=== PATIENT | female | born 1965 | race Caucasian/White ===

== ENCOUNTER 2017-04-28 06:59 | Day surgery (SDC) | payer OTHER ==
[~2017-04-28] VITALS: Ht 157.5 cm; Wt 52.7 kg
[~2017-04-28 06:59] MED LIST: HYDR-3498 PO
[2017-04-28] MEDS ORDERED: LEVO50TA74 PO (08:07)
[2017-04-28] MEDS ORDERED: ESOM40CA PO (08:07)
[2017-04-28] MEDS ORDERED: DICLOFENAC PO (08:07)
[2017-04-28 08:25] VITALS: Ht 157.5 cm; Wt 52.7 kg
[2017-04-28 08:28] VITALS: BP 128/72; PULSE 108; RESP 26
[2017-04-28 09:50] VITALS: BP 132/60; RESP 20
--- NOTE | 2017-04-28 10:56 | GILP ---
DATE OF PROCEDURE: 04/28/2017 PROCEDURE PERFORMED: EGD with biopsy and colonoscopy. INDICATION: A 52-year-old female undergoing this procedure for dysphagia and change in bowel habits. The risks of the procedure, related and unrelated complications, sedative risks, and alternatives discussed. Informed consent was obtained. DESCRIPTION OF PROCEDURE: The patient was brought to the GI lab, sedated with Versed 5 mg and fentanyl 100 mg. After optimal sedation, scope was passed into the esophagus, just grossly within normal limits. Z-line was at 35 cm. Stomach mucosa revealed chronic gastritis. Multiple biopsies obtained. Duodenal bulb, 1st and 2nd part, were within normal limits including ampulla. Retroversion done. sphincter appeared normal. Scope was straightened out and removed with good patient tolerance. The patient was turned around. Scope was passed with much ease into the rectum. Digital examination was done before introducing the scope, which was normal. The sphincter tone was normal. No mass was felt. Scope was advanced slowly through sigmoid, descending colon all the way into cecum and finally into terminal ileum. Terminal ileum was normal. IC valve and cecum was normal. While coming out, mucosa thoroughly inspected. There was a solitary diverticulum identified. The rest of the colon appeared normal. Retroversion done. Hemorrhoid seen. ASSESSMENT: 1. Normal esophagus. No stricture noting. 2. Z-line regular at 35 cm. 3. Chronic gastritis. 4. Normal duodenal with ampulla. 5. Normal findings all the way into cecum except for a mild diverticulosis, left side of the colon. 6. Normal terminal ileum. 7. Clarity and cleanliness was good. 8. Internal hemorrhoids on retroversion. PLAN: Review histopathology. Stay on high-fiber diet. Dictated By: Neal Goodrich MD /debbie/mark anthony /Document#: [id number] CC: Richard Polanco MD;*[facility]*
[2017-04-29] MEDS ORDERED: MIDAZOLAM 1 MG/ML 2 ML INJ ONE ×3 (18:02)
[2017-04-29] MEDS ORDERED: FENTAnyl 50 MCG/ML VIAL ONE (18:02)
== END 2017-04-28 10:51 | disposition home or self-care (01) ==
LOC: GIL 06:59
PROVIDERS: ATTEND Internal Medicine Gastroenterology
DX: R19.4 Change in bowel habit (principal); K29.50 Unspecified chronic gastritis without bleeding; K64.8 Other hemorrhoids; E03.9 Hypothyroidism, unspecified
CPT/HCPCS: 88305; 88312; J2250; J3010

== ENCOUNTER 2017-07-22 20:27 | Observation (INO) | payer OTHER ==
[~2017-07-22] VITALS: Ht 147.3 cm; Wt 50.5 kg
[~2017-07-22 20:27] MED LIST changes: +DICLOFENAC PO; +ESOM40CA PO; -HYDR-3498 PO; +LEVO50TA74 PO
[2017-07-22 21:05] VITALS: Ht 147.3 cm; Wt 50.5 kg
[2017-07-23] VITALS (18 sets, daily range): BP systolic 109–125; BP diastolic 50–73; PULSE 72–82; RESP 17–26; TEMP 98.4
[2017-07-23] MEDS ORDERED: GLUCAGON 1 MG INJ IM STA ×2 (00:12→02:12)
--- NOTE | 2017-07-23 00:25 | ERD ---
ER Documentation Chief Complaint Date/Time DATE: 07/23/17 TIME: 00:23 Chief Complaint PAIN AFTER EATING, +N/V, AND REPORTS THROAT PAIN HPI This is a 52-year-old female who has had a 8 or 9 month history of getting occasional meat stuck in her esophagus. Patient has had an EGD which was normal. Patient had some steak at 3 PM today and says the bolus of steak is stuck in her esophagus again. She is spitting up saliva and unable to swallow any liquids. She feels a fullness in the mid chest from bolus is stuck. No difficulty breathing or anginal type of symptoms ROS All systems reviewed and are negative except as per history of present illness. Medications Home Meds Reported Medications Adalimumab (Humira) Unknown Strength Syringekit, SQ [id number], KIT 07/23/17 Calcium Citrate/Vitamin D (Citracal-Vitamin D 200 MG-250) 1 Each Tablet, 1 EACH PO BID, TAB 07/23/17 Garlic Extract* (Garlic*) 600 Mg Tablet, 600 MG PO DAILY, TAB 07/23/17 Levothyroxine Sodium* (Levothyroxine Sodium*) 50 Mcg Tablet, 50 MCG PO BEFORE BREAKFAST, #30 TAB 04/28/17 Esomeprazole Mag Trihydrate (Nexium) 40 Mg Capsule.dr, 40 MG PO DAILY, #30 CAP 04/28/17 Discontinued Reported Medications [Diclofenac] No Conflict Check, 50 MG PO 04/28/17 Allergies Allergies: Coded Allergies: sulfasalazine (Unverified Allergy, Intermediate, 07/23/17) tongue feels like it is burning Uncoded Allergies: Metrotexate (Allergy, Intermediate, 04/28/17) PMhx/Soc History of Surgery: Yes (CSECTION) Anesthesia Reaction: No Hx Neurological Disorder: No Hx Respiratory Disorders: No Hx Cardiac Disorders: No Hx Psychiatric Problems: Yes (MILD DEPRESSION) Hx Miscellaneous Medical Probl: Yes (gastritis) Hx Alcohol Use: Yes (OCCASIONAL) Hx Substance Use: No Hx Tobacco Use: No Smoking Status: Never smoker FmHx Family History: No coronary disease Physical Exam Vitals Vital Signs Date Time Temp Pulse Resp B/P Pulse Ox O2 Delivery O2 Flow Rate FiO2 07/23/17 00:44 99.9 82 22 118/62 98 07/22/17 21:05 100.3 123 22 125/60 98 Physical Exam Const: Well-developed, well-nourished Head: Atraumatic, normocephalic Eyes: Normal Conjunctiva, PERRLA, EOMI, normal sclera, no nystagmus ENT: Normal External Ears, Nose and Mouth, moist mucus membranes. Neck: Full range of motion. No meningismus, no lymphadenopathy. Resp: Clear to auscultation bilaterally, no wheezing, rhonchi, rales Cardio: Regular rate and rhythm, no murmurs, S1 S2 present Abd: Soft, non tender x 4, non distended. Normal bowel sounds, no guarding or rebound, no pulsitile abdominal masses or bruits Skin: No petechiae or rashes, no ecchymosis , no maculopapular rash Back: No midline or flank tenderness Ext: No cyanosis, or edema, FROM x 4, normal inspection, neurovascularly intact x 4 Neur: Awake and alert, STR 5/5 x 4, sensation intact x 4, no focal findings, cerebellum intact Psych: Normal Mood and Affect Results 24 hrs Current Medications Medications (Trade) Dose Ordered Sig/Varsha Route PRN Reason Start Time Stop Time Status Last Admin Dose Admin Glucagon (Glucagen) 1 mg ONCE STAT IM 07/23/17 00:12 07/23/17 00:13 DC 07/23/17 00:44 Glucagon (Glucagen) 1 mg ONCE STAT IM 07/23/17 02:12 07/23/17 02:13 DC 07/23/17 02:32 Procedures/MDM Patient received glucagon 1 mg IM 2 and had some carbonated drink and after a few hours of observation the patient is no better. I spoke with Dr. Ashwini de la vega of GI and he will see the patient in consultation to remove the food bolus in the morning We will admit Departure Diagnosis: Primary Impression: Esophageal obstruction due to food impaction Condition: Stable CODY LEZAMAJane GIORDANO Jul 23, 2017 00:25
[2017-07-23] MEDS ORDERED: ADAL10SY SQ (02:07)
[2017-07-23] MEDS ORDERED: GARL600T PO (02:07)
[2017-07-23] MEDS ORDERED: CALC-143 PO (02:07)
[2017-07-23] MEDS ORDERED: SOD CHLORIDE 0.9% 1,000 ML IV SCH (03:28)
[2017-07-23] MEDS ORDERED: ONDANSETRON 4 MG INJ IV PRN ×3 (03:30→20:00)
[2017-07-23] MEDS ORDERED: ACETAMINOPHEN 325 MG TAB PO PRN (03:30)
[2017-07-23] MEDS: SOD CHLORIDE 0.9% 1,000 ML IV SCH ×3 (04:10→22:14)
[2017-07-23 04:29] LABS: BASOPHILS % 0.1 % (0.0-2.0); EOSINOPHILS # 0.1 10^3/ul (0.0-0.5); EOSINOPHILS % 0.9 % (0.0-7.0); HEMOGLOBIN 11.6 g/dl (12.0-16.0); LYMPHOCYTES # 3.6 10^3/ul (0.8-2.9); LYMPHOCYTES % 25.3 % (15.0-51.0); MEAN CORPUSCULAR HEMOGLOBIN 24.1 pg (29.0-33.0); MEAN CORPUSCULAR HGB CONC 30.5 g/dl (32.0-37.0); MEAN CORPUSCULAR VOLUME 78.8 fl (82.0-101.0); MONOCYTE # 0.4 10^3/ul (0.3-0.9); MONOCYTES % 2.9 % (0.0-11.0); NEUTROPHIL # 10.1 10^3/ul (1.6-7.5); NEUTROPHILS % 70.5 % (39.0-77.0); PLATELET COUNT 515 10^3/UL (140-415); RED BLOOD COUNT 4.82 10^6/ul (4.20-5.40); RED CELL DISTRIBUTION WIDTH 18.5 % (11.5-14.5); WHITE BLOOD COUNT 14.3 10^3/ul (4.8-10.8)
[2017-07-23] MEDS ORDERED: morphine 2 MG INJ IV PRN (04:30)
[2017-07-23] MEDS ORDERED: NACL 0.9% 3 ML SYG IV SCH (04:30)
[2017-07-23 05:16] LABS: CALCIUM 9.8 mg/dl (8.4-10.2); CREATININE 0.71 mg/dl (0.44-1.00); POTASSIUM 3.6 mmol/L (3.5-5.1)
[2017-07-23 05:23] LABS: INR 1.04; PROTIME 13.6 Sec (12.2-14.2); PT RATIO 1.1
[2017-07-23 05:24] LABS: PARTIAL THROMBOPLASTIN TIME 33.2 Sec (25.0-35.0)
--- NOTE | 2017-07-23 06:26 | HP ---
Date/Time of Note Date/Time of Note DATE: 07/23/17 TIME: 06:21 Assessment/Plan VTE Prophylaxis VTE Prophylaxis Intervention: SCD's Assessment/Plan Chief Complaint/Hosp Course This is a 52-year-old female being admitted to the [facility] floor for: #1 foreign body in esophagus: Patient apparently will take she feels that it stuck in her throat. Was given carbonated water in the ED however there was no success. Patient is having increased saliva. At the current time will keep the patient n.p.o. Provide IV fluid hydration with normal saline. GI has been consulted via the ED for removal of the foreign body. I do feel the patient also will benefit from an endoscopy secondary to the patient's history of having difficulty swallowing food at times. #2 rheumatoid arthritis: At the current time will hold patient's home medications, will resume once foreign bodies removed. #3 hypothyroidism: Check TSH level, resume home medication once #1 is resolved #4 gastritis: Patient likely will benefit from a full EGD, will defer to GI. #5 DVT GI prophylaxis: SCDs, Protonix Further treatment strategy will be implemented as per the clinical course Problems: HPI/ROS Admit Date/Time Admit Date/Time Hx of Present Illness Chief complaint: Steak stuck in throat This is a 52-year-old female who has had a 8 or 9 month history of getting occasional meat stuck in her esophagus. Patient has had an EGD which was normal in the past. Patient had some steak at 3 PM today and says the steak is stuck in her esophagus again. She has never had to have a procedure to remove food in the past, as the food as passed on its own in the past. She is spitting up saliva and unable to swallow any liquids. She feels a fullness in the mid chest from bolus is stuck. No difficulty breathing or anginal type of symptoms. Allergies: Methotrexate, sulfasalazine Medications: See ALBINA WEI Const: As per HPI Eyes : No pain discharge or redness or change in visual acuity ENT: No pain, sore throat, congestion, congestion, dysphagia or discharge Respiratory: No shortness of breath, cough, sputum, wheezing, or pleuritic pain Cardiovascular: No chest pain, palpitation, PND, or edema GI : As per HPI Genitourinary: No dysuria, hematuria, flank pain , discharge or CVA tenderness Musculoskeletal: No joint pain, back pain, neck pain, restricted range of motion in neck or joints Skin: No rash, bruising or hives Neuro: No headache, dizziness, syncope, seizure, focal weakness Endocrine: No polyuria, polydipsia, temperature intolerance Psych: No hallucination, depression, anxiety or suicidal ideation PMH/Family/Social Past Medical History Rheumatoid arthritis, hypothyroidism, gastritis Past Surgical History 2 Family History Significant Family History: other (Mom: Rheumatoid arthritis) Social History Alcohol Use: none Smoking Status: Never smoker Drug Use: none Exam/Review of Systems Vital Signs Vitals Vital Signs Date Time Temp Pulse Resp B/P Pulse Ox O2 Delivery O2 Flow Rate FiO2 07/23/17 04:34 99.1 77 20 122/60 98 Exam Exam General: Patient is sitting in bed in no acute distress conversing normally. HEENT: Atraumatic, normocephalic. The pupils are equal, round and reactive. Extraocular motor are intact. No food visible on examination of the oral cavity Neck: Supple with full range of motion. No rigidity or meningismus Lungs: Clear to auscultation bilaterally no crackles rales or wheezing Heart: Normal S1-S2, Regular rhythm and rate. No murmur, S3, or S4 Abdomen: Soft , nontender, nondistended , bowel sounds are present. No guarding no rebound tenderness , No masses or organomegaly. No costovertebral temporal angle mass Extremities: Bilateral upper extremity hand swan-neck deformity Neurologic: Normal mental status, speech normal, cranial nerves II through XII are intact, motor and sensory are intact, no focal weakness Labs Result Diagram: 07/23/179 07/23/179 Medications Medications Current Medications Sodium Chloride 1,000 ml @ 80 mls/hr [id number] IV ; Start 07/23/17 at 03:28; Stop 07/23/17 at 15:57 Sodium Chloride (NS) 1,000 ml @ 70 mls/hr [id number] IV ; Start 07/23/17 at 04:10 Ondansetron HCl (Zofran Inj) 4 mg Q6H PRN IV NAUSEA AND/OR VOMITING; Start at 04:30 Morphine Sulfate (morphine) 2 mg Q4H PRN IV SEVERE PAIN LEVEL 7-10; Start at 04:30 Pantoprazole (Protonix Iv) 40 mg DAILY@06 IV ; Start 07/23/17 at 06:00 TREVOR CARROLL Jul 23, 2017 06:26
[2017-07-23] MEDS ORDERED: LIDOCAINE 2% (SDV) 5 ML INJ ONE (07:00)
[2017-07-23] MEDS: PANTOPRAZOLE 40 MG INJ IV SCH (07:40)
--- NOTE | 2017-07-23 12:52 | RADRPT ---
PROCEDURE: Chest x-ray CLINICAL INDICATION: Shortness of breath TECHNIQUE: Chest single view COMPARISON: None FINDINGS: The heart is normal in size. The pulmonary vessels are normal in caliber. There is persistent left lower lobe atelectasis/scarring. The lungs otherwise clear. The costophrenic angles sharp. Bony thor ax is unremarkable. IMPRESSION: No acute cardiopulmonary disease. Persistent left lower lobe atelectasis/scarring RPTAT: HH .Obed Rojas MD, MD Date Time Electronically viewed and signed by .Obed Rojas MD, on 07/23/2017 12:50 .W/
[2017-07-23] MEDS ORDERED: HYDROmorphONE 1 MG/ML SYG IV PRN (14:30)
[2017-07-23 15:27] LABS: ADD UMIC YES; UR ASCORBIC ACID 40 mg/dL (NEGATIVE); UR BACTERIA FEW /HPF (NONE SEEN); UR BILIRUBIN (Dip) NEGATIVE (NEGATIVE); UR BLOOD (Dip) NEGATIVE (NEGATIVE); UR CLARITY CLEAR (CLEAR); UR COLOR YELLOW (YELLOW); UR GLUCOSE (Dip) NEGATIVE (NEGATIVE); UR KETONES (Dip) 2+ mg/dL (NEGATIVE); UR LEUKOCYTE ESTERASE (Dip) 2+ Leu/ul (NEGATIVE); UR MUCUS MANY /HPF (NONE SEEN); UR NITRITE (Dip) NEGATIVE (NEGATIVE); UR RBC 4 /HPF (0-5); UR SPECIFIC GRAVITY (Dip) 1.029 (1.003-1.030); UR SQUAMOUS EPITHELIAL CELL FEW /HPF (FEW); UR TOTAL PROTEIN (Dip) 2+ mg/dl (NEGATIVE); UR UROBILINOGEN (Dip) NEGATIVE (NEGATIVE)
[2017-07-23] MEDS ORDERED: FENTAnyl 50 MCG/ML VIAL ONE (18:27)
--- NOTE | 2017-07-23 18:34 | CONS ---
Date/Time of Note Date/Time of Note DATE: 07/23/17 TIME: 18:25 Assessment/Plan Assessment/Plan Additional Assessment/Plan Impression: Foot impaction distal esophagus Chronic reflux symptoms Rheumatoid arthritis Plan: EGD plus foreign body removal. Procedure was explained to the patient and her in Croatian in detail including risks, benefits alternatives they are agreeable to proceed. Consultation Date/Type/Reason Admit Date/Time Date of Consultation: Jul 23, 2017 Type of Consultation: GI Reason for Consultation Esophageal food impaction Hx of Present Illness 52-year-old female with chronic history of rheumatoid arthritis on Humira, she also takes nonsteroidal inflammatory agents relatively frequently. The patient has been experiencing dysphagia which has been progressive over the last few months. She also complains of pyrosis and regurgitation. Yesterday the patient was eating normal meal and bite of steak felt not going through after multiple attempts of removing it by getting water and attempting to induce vomiting failed to relieve the obstruction patient presented to the emergency room. She has been in the emergency room all day and continues to feel discomfort in the lower chest and inability to swallow her own saliva. At this point we will evaluate endoscopically and further recommendation depending the findings at the time of endoscopy. The procedure has been expanded to the patient in detail including risks, benefits alternatives. She is agreeable to proceed. Constitutional: improved, no complaints Eyes: no complaints ENT: no complaints Respiratory: no complaints Cardiovascular: no complaints Gastrointestinal: other (See HPI) Genitourinary: no complaints Musculoskeletal: bone/joint pain, other (Deformity typical for rheumatoid arthritis), restricted range of motion, swelling Skin: no complaints Neurologic: no complaints Endocrine: no complaints Lymphatic: no complaints Psychological: nl mood/affect, no complaints Immunologic: no complaints Social History Alcohol Use: none Smoking Status: Never smoker Drug Use: none Exam/Review of Systems Vital Signs Vitals Vital Signs Date Time Temp Pulse Resp B/P Pulse Ox O2 Delivery O2 Flow Rate FiO2 07/23/17 16:15 98.4 78 18 122/74 100 Room Air Exam PHYSICAL EXAMINATION: GENERAL: Well developed, well nourished, alert & oriented x 3, in no acute distress SKIN: No lesions, no stigmata chronic liver disease, no evidence of bleeding diathesis LYMPHATIC: No palpable lymphadenopathy. HEAD: Normocephalic, atraumatic, no tenderness. EYES: Pupils equal reactive to light and accommodation, full extraocular movements, sclera clear, non-icteric, no discharge. EARS/NOSE AND THROAT: Ears normal, nose normal, oropharynx normal, oral membranes well hydrated without lesions. NECK: Supple, no masses, thyroid normal, JVP within normal limits, carotids normal without bruits. CHEST: Inspection within normal limits. CARDIOVASCULAR: Heart: Regular rate and rhythm, no murmurs, gallops or rubs. Peripheral pulses present within normal limits, no cyanosis, clubbing or edemas. No pulsatile abdominal mass RESPIRATORY: Lungs clear to auscultation and percussion, no wheezing, no rubs GASTROINTESTINAL AND LIVER: Abdomen: Soft, non tenderness, non-distended, no hernias, no masses, no organomegaly, no ascites, no guarding, no rebound tenderness, normoactive bowel sounds. Rectal: Deferred. GENITOURINARY: [Female genitalia within normal limits.] EXTREMITIES: Deformity of rheumatoid arthritis. No cyanosis, clubbing or edema. Results Result Diagram: 07/23/17 0409 07/23/17 0409 Results 24 hrs Laboratory Tests Test 07/23/17 04:09 07/23/17 14:50 White Blood Count 14.3 H Red Blood Count 4.82 Hemoglobin 11.6 L Hematocrit 38.0 Mean Corpuscular Volume 78.8 L Mean Corpuscular Hemoglobin 24.1 L Mean Corpuscular Hemoglobin Concent 30.5 L Red Cell Distribution Width 18.5 H Platelet Count 515 H Mean Platelet Volume 9.0 # Neutrophils % 70.5 Lymphocytes % 25.3 Monocytes % 2.9 Eosinophils % 0.9 Basophils % 0.1 Nucleated Red Blood Cells % 0.0 Neutrophils # 10.1 H Lymphocytes # 3.6 H Monocytes # 0.4 Eosinophils # 0.1 Basophils # 0.0 Nucleated Red Blood Cells # 0.0 Prothrombin Time 13.6 Prothrombin Time Ratio 1.1 INR International Normalized Ratio 1.04 Activated Partial Thromboplast Time 33.2 Sodium Level 149 H Potassium Level 3.6 Chloride Level 110 Carbon Dioxide Level 28 Anion Gap 15 Blood Urea Nitrogen 20 Creatinine 0.71 Glucose Level 104 Calcium Level 9.8 Urine Color YELLOW Urine Clarity CLEAR Urine pH 6.0 Urine Specific [place] 1.029 Urine Ketones 2+ H Urine Nitrite NEGATIVE Urine Bilirubin NEGATIVE Urine Urobilinogen NEGATIVE Urine Leukocyte Esterase 2+ H Urine Microscopic RBC 4 Urine Microscopic WBC 18 H Urine Squamous Epithelial Cells FEW Urine Bacteria FEW A Urine Mucus MANY A Urine Hemoglobin NEGATIVE Urine Glucose NEGATIVE Urine Total Protein 2+ H Urine Test NEGATIVE Medications Medications Current Medications Sodium Chloride (NS) 1,000 ml @ 70 mls/hr [id number] IV Last administered on 04:10; Admin Dose 70 MLS/HR; Start 07/23/17 at 04:10 Ondansetron HCl (Zofran Inj) 4 mg Q6H PRN IV NAUSEA AND/OR VOMITING; Start at 04:30 Pantoprazole (Protonix Iv) 40 mg DAILY@06 IV Last administered on 07/23/17 07 :40; Admin Dose 40 MG; Start 07/23/17 at 06:00 Hydromorphone HCl (Dilaudid) 1 mg Q6H PRN IV PAIN; Start 07/23/17 at 14:30 Copies To: CC: ALFREDO DELGADO MD, MORDO MD Jul 23, 2017 18:33
[2017-07-23] MEDS ORDERED: SUCCINYLCHOLINE CHLORIDE 100 MG/5 ML SYG IV ONE (18:44)
[2017-07-23] MEDS ORDERED: PROPOFOL 20 ML ONE (18:44)
--- NOTE | 2017-07-23 18:45 | OPPN ---
Date/Time of Note Date/Time of Note DATE: 07/23/17 TIME: 18:42 Proc Note GI Procedure Date 07/23/17 Indication: other (Foreign body impaction and esophagus) Pre-procedure Diagnosis Foreign body impaction and esophagus Post-procedure Diagnosis Impression: Foreign body impaction and esophagus Post removal by pushing the material into the stomach Moderate distal esophagitis Mild stricture distal esophagus. 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 Procedure Performed: Endoscopy (With foreign body removal) Surgeon ALFREDO DELGADO MD See signature line Basket Turner none Anesthesia Type: general Anesthesiologist: BRE MORELAND Tourniquet Time none EBL none Transfusion required none Biopsy 1: None Grafts/Implants none Tubes/Drains none Complication(s) none Disposition: PACU Procedure Description Preoperative Diagnosis: After informed consent, with the patient/relatives understanding the procedure, its indications, potential risks and complications, including but not limited to : allergic reaction, bleeding, perforation or infection, and after all pertinent questions were answered to the patients satisfaction, the patient/ relatives signed witnessed informed consent. Following this, premedication was administered slowly IV push under careful cardiovascular and respiratory monitoring with pulse oximetry, automatic blood pressure, and patient access director. Once the sedative effect was achieved the patient was place in the left lateral decubitus, the panendoscope was introduced and advanced under visual control. Careful examination of the upper gastrointestinal tract, both on insertion as well as withdrawal of the instrument disclosing the following findings: ESOPHAGUS: the mucosa of the entire esophagus was carefully examined and showed the following findings: There is food impaction in distal esophagus which appears soft it was easily pushed down into the stomach with the endoscope. The mucosa of the distal esophagus shows erythema edema and erosion related to prolonged impaction. The lumen is slightly compromised with an estimated lumen of 12 mm. No dilatation was performed at this time. Otherwise the mucosa appears within normal limits. There is no evidence of varices, neoplasm. No Hiatal Hernia identified. STOMACH: Upon entrance to the stomach air was insufflated, the gastric garcia distended normally. The mucosa of the fundus, body and antrum of the stomach was carefully examined both head-on and on retroflexion, and showed the following findings: the mucosa appears within normal limits with no abnormalities. There is no evidence of gastritis, ulcers or neoplasm. PYLORUS: The pylorus was carefully examined and showed the following findings: the pylorus appears patent and within normal limits, with no evidence of gastric outlet obstruction. DUODENUM: The duodenal mucosa was carefully examined in the duodenal bulb as well as the second portion of the duodenum and showed the following findings: the mucosa appears unremarkable with no evidence of duodenitis, ulcer or neoplasm. Copies To: CC: ALFREDO DELGADO MD, MORDO MD Jul 23, 2017 18:45
[2017-07-23] MEDS ORDERED: FENTAnyl 50 MCG/ML VIAL IV PRN ×3 (20:00)
[2017-07-23] MEDS ORDERED: METOCLOPRAMIDE 10 MG INJ IV PRN (20:00)
[2017-07-23] MEDS ORDERED: KETOROLAC 30 MG INJ IV PRN (20:00)
[2017-07-23] MEDS ORDERED: EPHEDrine SULFATE 50 MG/5 ML SYG IV PRN (20:00)
[2017-07-23] MEDS ORDERED: hydrALAzine 20 MG INJ IV PRN (20:00)
[2017-07-23] MEDS ORDERED: DIPHENHYDRAMINE 50 MG INJ IV PRN (20:00)
[2017-07-23] MEDS ORDERED: LABETALOL HCL 20MG INJ IV PRN (20:00)
[2017-07-23] MEDS ORDERED: MEPERIDINE 25 MG INJ IV PRN (20:00)
[2017-07-23] MEDS ORDERED: OXYCODONE/ACETAMINOPHEN (5/325) TAB PO PRN ×2 (20:00)
[2017-07-24] MEDS ORDERED: LEVOTHYROXINE 50 MCG TAB PO SCH (06:00)
[2017-07-24 06:01] LABS: BASOPHILS % 0.1 % (0.0-2.0); EOSINOPHILS # 0.4 10^3/ul (0.0-0.5); EOSINOPHILS % 4.9 % (0.0-7.0); HEMATOCRIT 35.3 % (37.0-47.0); HEMOGLOBIN 10.4 g/dl (12.0-16.0); LYMPHOCYTES # 3.8 10^3/ul (0.8-2.9); MEAN CORPUSCULAR HEMOGLOBIN 23.8 pg (29.0-33.0); MEAN CORPUSCULAR HGB CONC 29.5 g/dl (32.0-37.0); MEAN CORPUSCULAR VOLUME 80.8 fl (82.0-101.0); MEAN PLATELET VOLUME 9.8 fl (7.4-10.4); MONOCYTE # 0.2 10^3/ul (0.3-0.9); MONOCYTES % 3.1 % (0.0-11.0); NEUTROPHIL # 3.3 10^3/ul (1.6-7.5); NEUTROPHILS % 42.8 % (39.0-77.0); PLATELET COUNT 463 10^3/UL (140-415); RED BLOOD COUNT 4.37 10^6/ul (4.20-5.40); RED CELL DISTRIBUTION WIDTH 18.3 % (11.5-14.5); WHITE BLOOD COUNT 7.7 10^3/ul (4.8-10.8)
[2017-07-24] MEDS: PANTOPRAZOLE 40 MG INJ IV SCH (06:18)
[2017-07-24] MEDS ORDERED: INFLUENZA VIRUS VACCINE 0.5 ML (DISPENSING) IM* ONE (06:30)
[2017-07-24 06:43] LABS: ALBUMIN 3.1 g/dl (3.3-4.9); ALBUMIN/GLOBULIN RATIO 0.83; BILIRUBIN,INDIRECT 0.1 mg/dl (0-1.1); BILIRUBIN,TOTAL 0.1 mg/dl (0.2-1.3); CALCIUM 8.9 mg/dl (8.4-10.2); CREATININE 0.69 mg/dl (0.44-1.00); MAGNESIUM 1.9 mg/dl (1.7-2.5); PHOSPHORUS 4.1 mg/dl (2.5-4.9); POTASSIUM 4.4 mmol/L (3.5-5.1); TOTAL PROTEIN 6.8 g/dl (6.1-8.1)
[2017-07-24 07:41] VITALS: BP 126/60; RESP 18
[2017-07-24] MEDS ORDERED: NON-FORMULARY/PATIENT OWN MED (Esomeprazole Mag Trihydrate (Nexium) 40 MG) PO SCH (09:00)
--- NOTE | 2017-07-24 10:25 | PDOCDIS ---
Discharge Instructions DIAGNOSIS Discharge Diagnosis Foreign body in the esophagus. CONDITION Patient Condition: Stable HOME CARE INSTRUCTIONS: Diet Instructions: Regular FOLLOW UP/APPOINTMENTS Follow-up Plan Adelaida Bell MD [facility] Office Address [id number] [place] [address] Office OTHER ORDERS: Other Orders: 1. Take a regular diet. 2. Resume home medications 3. Follow-up with gastroenterology [Dr. Bell] in 4 weeks. Please call for appointment. ROSEANNE DAILY NP Jul 24, 2017 10:25
--- NOTE | 2017-07-24 10:34 | DS ---
Date/Time of Note Date/Time of Note DATE: 07/24/17 TIME: 10:33 Discharge Summary Admission/Discharge Info Admit Date/Time Jul 23, 2017 at 03:30 Discharge Date/Time Discharge Diagnosis 1. Foreign body impaction in the esophagus. Status post removal by pushing the material in the stomach with esophagogastroduodenoscopy. 2. Rheumatoid arthritis. 3. Hypothyroidism. 4. Moderate distal esophagitis. 5. Mild stricture of the distal esophagus. Patient Condition: Stable Consults 1. Adelaida Bell MD, Gastroenterology. Procedures ESOPHAGOGASTRODUODENOSCOPY Indication: other (Foreign body impaction) Pre-procedure Diagnosis Foreign body impaction in the esophagus Post-procedure Diagnosis Impression: Foreign body impaction in the esophagus Post removal by pushing the material into the stomach Moderate distal esophagitis Mild stricture distal esophagus. 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 Patient has had an EGD which was normal in the past. Patient had some steak at 3 PM on 07/22/2017 and felt like the steak is stuck in her esophagus again. She has never had to have a procedure to remove food in the past, as the food as passed on its own in the past. She was spitting up saliva and unable to swallow any liquids. She felt a fullness in the mid chest from the bolus stuck. No difficulty in breathing or anginal type of symptoms. Allergies: Methotrexate, sulfasalazine Medications: See [facility] Hospital Course The patient was admitted to inpatient setting. The patient was kept n.p.o. A gastroenterology consult was obtained. The patient underwent an esophagogastroduodenoscopy with removal of the foreign body by pushing the material into the stomach. The esophagogastroduodenoscopy also revealed moderate distal esophagitis and mild stricture of the distal esophagus with an estimated lumen of 12 mm and the patient probably has motility disorder of the esophagus related to her underlying rheumatoid arthritis. No dilatation was done at this time. However, the patient needs repeat esophagogastroduodenoscopy as outpatient for esophageal dilatation in 4 weeks. Postprocedure, the patient was started on a mechanical soft diet and the patient was able to tolerate the diet without any significant gastrointestinal symptoms. The patient is stable to be discharged home to be followed up with outpatient gastroenterology in 4 weeks for esophageal dilatation. The patient had a stable hospital course. Discharge Instructions 1. Take a regular preferably mechanical soft diet. 2. Resume home medications 3. Follow-up with gastroenterology [Dr. Bell] in 4 weeks. Please call for appointment. The patient verbalized understanding of her discharge instructions. At this time I would like to thank for seeing the patient, doing the necessary procedures, and providing clinical recommendations. Case discussed with Dr. Velazco. Home Meds Reported Medications Adalimumab (Humira) Unknown Strength Syringekit, SQ [id number], KIT 07/23/17 Calcium Citrate/Vitamin D (Citracal-Vitamin D 200 MG-250) 1 Each Tablet, 1 EACH PO BID, TAB 07/23/17 Garlic Extract* (Garlic*) 600 Mg Tablet, 600 MG PO DAILY, TAB 07/23/17 Levothyroxine Sodium* (Levothyroxine Sodium*) 50 Mcg Tablet, 50 MCG PO BEFORE BREAKFAST, #30 TAB 04/28/17 Esomeprazole Mag Trihydrate (Nexium) 40 Mg Capsule.dr, 40 MG PO DAILY, #30 CAP 04/28/17 Discontinued Reported Medications [Diclofenac] No Conflict Check, 50 MG PO 04/28/17 Follow-up Plan Adelaida Bell MD Specialty Gastroenterology Office Address [id number] [place] [id number] Office Primary Care Provider Richard Polanco MD Time spent on discharge: > 30 minutes Pending Labs Laboratory Tests Test 07/23/17 14:50 07/24/17 04:33 Urine Color YELLOW (YELLOW) Urine Clarity CLEAR (CLEAR) Urine pH 6.0 (5.0-9.0) Urine Specific [place] 1.029 (1.003-1.030) Urine Ketones 2+mg/dL (NEGATIVE) Urine Nitrite NEGATIVEmg/dL (NEGATIVE) Urine Bilirubin NEGATIVEmg/dL (NEGATIVE) Urine Urobilinogen NEGATIVEmg/dL (NEGATIVE) Urine Leukocyte Esterase 2+Ted/ul (NEGATIVE) Urine Microscopic RBC 4/HPF (0-5) Urine Microscopic WBC 18/HPF (0-5) Urine Squamous Epithelial Cells FEW/HPF (FEW) Urine Bacteria FEW/HPF (NONE SEEN) Urine Mucus MANY/HPF (NONE SEEN) Urine Hemoglobin NEGATIVEmg/dL (NEGATIVE) Urine Glucose NEGATIVEmg/dL (NEGATIVE) Urine Total Protein 2+mg/dl (NEGATIVE) Urine Test NEGATIVE (NEGATIVE) White Blood Count 7.710^3/ul (4.8-10.8) Red Blood Count 4.3710^6/ul (4.20-5.40) Hemoglobin 10.4g/dl (12.0-16.0) Hematocrit 35.3% (37.0-47.0) Mean Corpuscular Volume 80.8fl (82.0-101.0) Mean Corpuscular Hemoglobin 23.8pg (29.0-33.0) Mean Corpuscular Hemoglobin Concent 29.5g/dl (32.0-37.0) Red Cell Distribution Width 18.3% (11.5-14.5) Platelet Count 85680^3/UL (140-415) Mean Platelet Volume 9.8fl (7.4-10.4) Neutrophils % 42.8% (39.0-77.0) Lymphocytes % 49.0% (15.0-51.0) Monocytes % 3.1% (0.0-11.0) Eosinophils % 4.9% (0.0-7.0) Basophils % 0.1% (0.0-2.0) Nucleated Red Blood Cells % 0.0/100WBC (0.0-0.0) Neutrophils # 3.310^3/ul (1.6-7.5) Lymphocytes # 3.810^3/ul (0.8-2.9) Monocytes # 0.210^3/ul (0.3-0.9) Eosinophils # 0.410^3/ul (0.0-0.5) Basophils # 0.010^3/ul (0.0-0.1) Nucleated Red Blood Cells # 0.010^3/ul (0.0-0.0) Sodium Level 143mmol/L (135-144) Potassium Level 4.4mmol/L (3.5-5.1) Chloride Level 111mmol/L (97-110) Carbon Dioxide Level 24mmol/L (21-31) Anion Gap 12 (8-16) Blood Urea Nitrogen 21mg/dl (7-20) Creatinine 0.69mg/dl (0.44-1.00) Glucose Level 78mg/dl (70-220) Calcium Level 8.9mg/dl (8.4-10.2) Phosphorus Level 4.1mg/dl (2.5-4.9) Magnesium Level 1.9mg/dl (1.7-2.5) Total Bilirubin 0.1mg/dl (0.2-1.3) Direct Bilirubin 0.00mg/dl (0.00-0.20) Indirect Bilirubin 0.1mg/dl (0-1.1) Aspartate Amino Transf (AST/SGOT) 22IU/L (15-46) Alanine Aminotransferase (ALT/SGPT) 20IU/L (13-69) Alkaline Phosphatase 104IU/L (42-121) Total Protein 6.8g/dl (6.1-8.1) Albumin 3.1g/dl (3.3-4.9) Globulin 3.70g/dl (1.3-3.2) Albumin/Globulin Ratio 0.83 Microbiology Date/Time Source Procedure Growth Status 07/23/17 14:50 Clean Catch Urine Urine Culture - Preliminary Resulted ROSEANNE DAILY NP Jul 24, 2017 10:34
--- NOTE | 2017-07-24 14:20 | CONS ---
Date/Time of Note Date/Time of Note DATE: 07/24/17 TIME: 14:17 Assessment/Plan Assessment/Plan Chief Complaint/Hosp Course Impression: Foreign body impaction and esophagus 2. EGD with Post removal by pushing the material into the stomach on 07-23-17 3. Moderate distal esophagitis 4. Mild stricture distal esophagus. Estimated lumen 12 mm 5. 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 continue PPI therapy 2. Mechanical soft diet 3. ok to dc from GI perspective if ok with primary and no other acute medical issues 4. Outpatient follow-up for esophageal dilatation in 4 weeks Problems: Consultation Date/Type/Reason Admit Date/Time Jul 23, 2017 at 03:30 Initial Consult Date 07/23/17 Type of Consultation: GI 24 HR Interval Summary Free Text/Dictation no n/v, tolerates po Exam/Review of Systems Vital Signs Vitals Vital Signs Date Time Temp Pulse Resp B/P Pulse Ox O2 Delivery O2 Flow Rate FiO2 07/24/17 07:41 98.5 67 18 126/60 97 07/23/17 22:05 Room Air Intake and Output 07/23/17 07/23/17 07/24/17 15:00 23:00 07:00 Intake Total 990 ml Balance 990 ml Exam Constitutional: alert, oriented, well developed Psych: nl mood/affect, no complaints Head: atraumatic, normocephalic Eyes: EOMI, nl conjunctiva, nl lids ENMT: nl external ears & nose, nl lips & teeth, nl nasal mucosa & septum Neck: non-tender, supple Respiratory: clear to auscultation, normal air movement Cardiovascular: nl pulses, regular rate and rhythm Gastrointestinal: bowel sounds, non-tender, soft Results Result Diagram: 07/24/17 0433 07/24/17 0433 Results 24 hrs Laboratory Tests Test 07/23/17 14:50 07/24/17 04:33 Urine Color YELLOW Urine Clarity CLEAR Urine pH 6.0 Urine Specific [place] 1.029 Urine Ketones 2+ H Urine Nitrite NEGATIVE Urine Bilirubin NEGATIVE Urine Urobilinogen NEGATIVE Urine Leukocyte Esterase 2+ H Urine Microscopic RBC 4 Urine Microscopic WBC 18 H Urine Squamous Epithelial Cells FEW Urine Bacteria FEW A Urine Mucus MANY A Urine Hemoglobin NEGATIVE Urine Glucose NEGATIVE Urine Total Protein 2+ H Urine Test NEGATIVE White Blood Count 7.7 # Red Blood Count 4.37 Hemoglobin 10.4 L Hematocrit 35.3 L Mean Corpuscular Volume 80.8 L Mean Corpuscular Hemoglobin 23.8 L Mean Corpuscular Hemoglobin Concent 29.5 L Red Cell Distribution Width 18.3 H Platelet Count 463 H Mean Platelet Volume 9.8 Neutrophils % 42.8 Lymphocytes % 49.0 Monocytes % 3.1 Eosinophils % 4.9 Basophils % 0.1 Nucleated Red Blood Cells % 0.0 Neutrophils # 3.3 Lymphocytes # 3.8 H Monocytes # 0.2 L Eosinophils # 0.4 Basophils # 0.0 Nucleated Red Blood Cells # 0.0 Sodium Level 143 Potassium Level 4.4 Chloride Level 111 H Carbon Dioxide Level 24 Anion Gap 12 Blood Urea Nitrogen 21 H Creatinine 0.69 Glucose Level 78 Calcium Level 8.9 Phosphorus Level 4.1 Magnesium Level 1.9 Total Bilirubin 0.1 L Direct Bilirubin 0.00 Indirect Bilirubin 0.1 Aspartate Amino Transf (AST/SGOT) 22 Alanine Aminotransferase (ALT/SGPT) 20 Alkaline Phosphatase 104 Total Protein 6.8 Albumin 3.1 L Globulin 3.70 H Albumin/Globulin Ratio 0.83 Medications Medications Current Medications Sodium Chloride (NS) 1,000 ml @ 70 mls/hr [id number] IV Last administered on 22:14; Admin Dose 70 MLS/HR; Start 07/23/17 at 04:10 Ondansetron HCl (Zofran Inj) 4 mg Q6H PRN IV NAUSEA AND/OR VOMITING; Start at 04:30 Hydromorphone HCl (Dilaudid) 1 mg Q6H PRN IV PAIN Last administered on 22:19; Admin Dose 1 MG; Start 07/23/17 at 14:30 Levothyroxine Sodium (Synthroid) 50 mcg DAILY@06 PO Last administered on 06:16; Admin Dose 50 MCG; Start 07/24/17 at 06:00 Pantoprazole (Protonix Tab) 40 mg DAILY@06 PO ; Start 07/25/17 at 06:00 JAYA OSUNA MD Jul 24, 2017 14:20
[2017-07-24] MEDS ORDERED: INFLUENZA VIRUS VACCINE 0.5 ML SYG IM* ONE (20:00)
[2017-07-25] MEDS ORDERED: PANTOPRAZOLE (EC) 40 MG TAB PO SCH (06:00)
== END 2017-07-24 12:30 | disposition home or self-care (01) ==
LOC: E/R 20:27 → SDS 07-23 03:29 → REC 07-23 03:30 → SDS 07-23 17:40 → UNDOFXSDCSVC 07-23 20:05 → SDS 07-23 20:05 → MS1 07-23 20:05 → SDS 07-23 22:44
PROVIDERS: ADMIT Internal Medicine Gastroenterology; ATTEND Internal Medicine Gastroenterology
DX: T18.128A Food in esophagus causing other injury, initial encounter (principal); K20.9 Esophagitis, unspecified; E03.9 Hypothyroidism, unspecified; M06.9 Rheumatoid arthritis, unspecified; Z88.8 Allergy status to other drugs, medicaments and biological substances; Z23 Encounter for immunization; X58.XXXA Exposure to other specified factors, initial encounter
CPT/HCPCS: 43247; 71010; 80048; 80053; 81001; 83735; 84100; 84703; 85025; 85610; 85730; 87086; 90686; 93005; 96372; 96374; 99285; C9113; G0008; G0378; J1170; J1610; J3010; J7030